=== PATIENT | female | born 1990 | race Native Hawaiian/Other Pacific Islander ===

== ENCOUNTER 2018-10-06 19:56 | Emergency (ER) | payer OTHER ==
[2018-10-07] MEDS ORDERED: PERCOCET 5/325 PO ONE (02:01)
--- NOTE | 2018-10-07 02:07 | Emergency Department Report ---
ED ENT HPI - General Chief complaint: Earache Stated complaint: RIGHT EAR PAIN Time Seen by Provider: 10/07/18 02:01 Source: patient Mode of arrival: Ambulatory Limitations: No Limitations - History of Present Illness Initial comments: 28-year-old female is [facility] complaining of a 2 day history of progressively worsening right ear pain with some some discharge and tenderness with palpation. She reports no direct trauma. No fever or vomiting, no presyncope, no hearing change MD complaint: ear pain Location: R ear Severity: mild Quality: dull, constant Consistency: constant Improves with: none Worsens with: none Associated Symptoms: denies: cough, gum swelling, sore throat, tinnitus, discharge from ear - Related Data Previous Rx's Medication Instructions Recorded Last Taken Type Dicyclomine [Bentyl] 20 mg PO QID PRN #12 tablet 10/03/15 Unknown Rx Ondansetron (Nf) [Zofran TAB] 8 mg PO Q8HR PRN #16 tablet 10/03/15 Unknown Rx Sulfamethoxazole/Trimethoprim 1 each PO BID #6 tablet 10/03/15 Unknown Rx [Bactrim DS TAB] Ciprofloxacin HCl [Cipro] 500 mg PO BID #20 tablet 10/07/18 Unknown Rx Neomy/Polymyx B/Hc (Otic) Soln 4 drops OT TID #1 bottle 10/07/18 Unknown Rx [Cortisporin (Otic) Soln] Allergies Allergy/AdvReac Type Severity Reaction Status Date / Time ibuprofen [From Motrin] Allergy Vomiting Verified 10/06/18 20:57 ED Dental HPI - General Chief complaint: Earache Stated complaint: RIGHT EAR PAIN Time Seen by Provider: 10/07/18 02:01 Source: patient Mode of arrival: Ambulatory Limitations: No Limitations - Related Data Previous Rx's Medication Instructions Recorded Last Taken Type Dicyclomine [Bentyl] 20 mg PO QID PRN #12 tablet 10/03/15 Unknown Rx Ondansetron (Nf) [Zofran TAB] 8 mg PO Q8HR PRN #16 tablet 10/03/15 Unknown Rx Sulfamethoxazole/Trimethoprim 1 each PO BID #6 tablet 10/03/15 Unknown Rx [Bactrim DS TAB] Ciprofloxacin HCl [Cipro] 500 mg PO BID #20 tablet 10/07/18 Unknown Rx Neomy/Polymyx B/Hc (Otic) Soln 4 drops OT TID #1 bottle 10/07/18 Unknown Rx [Cortisporin (Otic) Soln] Allergies Allergy/AdvReac Type Severity Reaction Status Date / Time ibuprofen [From Motrin] Allergy Vomiting Verified 10/06/18 20:57 ED Review of Systems ROS: Stated complaint: RIGHT EAR PAIN Other details as noted in HPI Constitutional: denies: chills, fever Eyes: denies: eye pain, eye discharge, vision change ENT: ear pain. denies: throat pain Respiratory: denies: cough, shortness of breath, wheezing Cardiovascular: denies: chest pain, palpitations Endocrine: no symptoms reported Gastrointestinal: denies: abdominal pain, nausea, diarrhea Genitourinary: denies: urgency, dysuria, discharge Musculoskeletal: denies: back pain, joint swelling, arthralgia Skin: denies: rash, lesions Neurological: denies: headache, weakness, paresthesias Psychiatric: denies: anxiety, depression Hematological/Lymphatic: denies: easy bleeding, easy bruising ED Past Medical Hx - Past Medical History Previous Medical History?: No - Surgical History Past Surgical History?: No - Social History Smoking Status: Never Smoker Substance Use Type: None - Medications Home Medications: Home Medications Medication Instructions Recorded Confirmed Last Taken Type Dicyclomine [Bentyl] 20 mg PO QID PRN #12 tablet 10/03/15 Unknown Rx Ondansetron (Nf) [Zofran TAB] 8 mg PO Q8HR PRN #16 tablet 10/03/15 Unknown Rx Sulfamethoxazole/Trimethoprim 1 each PO BID #6 tablet 10/03/15 Unknown Rx [Bactrim DS TAB] Ciprofloxacin HCl [Cipro] 500 mg PO BID #20 tablet 10/07/18 Unknown Rx Neomy/Polymyx B/Hc (Otic) Soln 4 drops OT TID #1 bottle 10/07/18 Unknown Rx [Cortisporin (Otic) Soln] ED Physical Exam - General Limitations: No Limitations General appearance: alert, in no apparent distress - Head Head exam: Present: atraumatic, normocephalic - Eye Eye exam: Present: normal appearance - ENT ENT exam: Present: mucous membranes moist, TM's normal bilaterally, other (swelling to the right ear canal tragus tenderness noted. Clear drainage is appreciated. No bleeding.) - Neck Neck exam: Present: normal inspection - Respiratory Respiratory exam: Present: normal lung sounds bilaterally. Absent: respiratory distress - Cardiovascular Cardiovascular Exam: Present: regular rate, normal rhythm. Absent: systolic murmur, diastolic murmur, rubs, gallop - GI/Abdominal GI/Abdominal exam: Present: soft, normal bowel sounds - Extremities Exam Extremities exam: Present: normal inspection - Back Exam Back exam: Present: normal inspection - Neurological Exam Neurological exam: Present: alert, oriented X3 - Psychiatric Psychiatric exam: Present: normal affect, normal mood - Skin Skin exam: Present: warm, dry, intact, normal color. Absent: rash ED Course Vital Signs 10/06/18 20:55 Temperature 98.7 F Pulse Rate 73 Respiratory 18 Rate Blood Pressure 112/55 [Right] O2 Sat by Pulse 100 Oximetry Critical care attestation.: If time is entered above; I have spent that time in minutes in the direct care of this critically ill patient, excluding procedure time. ED Disposition Clinical Impression: Otitis externa Disposition: DC-01 TO HOME OR SELFCARE Is pt being admited?: No Does the pt Need Aspirin: No Condition: Stable Instructions: Otitis Externa (ED) Referrals: GREER VILCHIS MD [Primary Care Provider] - 3-5 Days
[2018-10-07 02:40] VITALS: BP 118/67
== END 2018-10-07 02:25 | disposition home or self-care (01) ==
LOC: ED 19:56
DX: H60.91 Unspecified otitis externa, right ear (principal); Z88.6 Allergy status to analgesic agent